=== PATIENT | male | born 1995 | race Caucasian/White ===

== ENCOUNTER 2018-12-11 08:18 | Emergency (ER) | payer OTHER | END 2018-12-11 11:11 | disposition left against medical advice (07) | LOC: JERFT 08:18 ==

== ENCOUNTER 2019-06-28 11:56 | Day surgery (SDC) | payer OTHER ==
[2019-06-28] MEDS ORDERED: SODIUM CHLORIDE 1,000 ML IV STA ×2 (12:33→14:54)
[2019-06-28] MEDS ORDERED: morphine CARPU-JECT 4 MG/1 ML DISP.SYRIN IVPUSH ONE ×2 (12:33→14:47)
[2019-06-28] MEDS ORDERED: MORPHINE SULFATE 2 MG/ML VIAL ONE (12:43)
[2019-06-28] MEDS ORDERED: ONDANSETRON 4 MG/2 ML VIAL IVPUSH ONE (12:45)
--- NOTE | 2019-06-28 12:46 | PDOC ---
History of Present Illness - General Chief Complaint: Pain Stated Complaint: SENT FROM URGENT CARE/ABD PAIN Time Seen by Provider: 06/28/19 12:24 History Source: Patient - History of Present Illness Timing/Duration: reports: getting worse Quality: reports: severe Abdominal Pain Onset Location: reports: RLQ Past History - Past Medical History Allergies/Adverse Reactions: Allergies Allergy/AdvReac Type Severity Reaction Status Date / Time No Known Allergies Allergy Verified 06/28/19 12:00 COPD: No - Immunization History Immunization Up to Date: Yes - Psycho Social/Smoking Cessation Hx Smoking History: Never smoked Review of Systems - Review of Systems Constitutional: No: Chills, Fever ABD/GI: Yes: Abdominal cramping. No: Blood Streaked Bowels, Constipated, Diarrhea, Nausea, Rectal Bleeding, Vomiting : No: Dysuria, Flank Pain, Hematuria *Physical Exam - Vital Signs Last Vital Signs Temp Pulse Resp BP Pulse Ox 98.4 F 85 18 108/73 99 06/28/19 11:57 06/28/19 11:57 06/28/19 11:57 06/28/19 11:57 06/28/19 11:57 - Physical Exam General Appearance: Yes: Appropriately Dressed, Severe Distress HEENT: positive: Normal Voice Neck: positive: Supple Respiratory/Chest: negative: Respiratory Distress Gastrointestinal/Abdominal: positive: Normal Bowel Sounds, Tender (to periumbilicus and RLQ), Soft. negative: Distended, Guarding, Rebound Musculoskeletal: negative: CVA Tenderness Integumentary: positive: Dry, Warm Neurologic: positive: Fully Oriented, Alert, Normal Mood/Affect ED Treatment Course - LABORATORY CBC & Chemistry Diagram: 06/28/19 12:45 06/28/19 12:45 - RADIOLOGY Radiology Studies Ordered: Category Date Time Status ABDOMEN & PELVIS CT WITH CONTR [CT] Stat CT Scan 06/28/19 12:35 Ordered Medical Decision Making - Medical Decision Making 06/28/19 12:43 24-year-old male, no significant history, here with severe abdominal pain that started this a.m. No nausea, vomiting, change in bowel movements, fever or chills. No history of similar episode. Seen at urgent care this a.m. and sent to ED to be ruled out for appendicitis see exam Concern for appy Pt very uncomfortable w/ sig ttp and guarding to RLQ -pain control -IVF -CT -anticipate admission 06/28/19 14:10 CT with acute appy with no obvious abscess or perforation. Patient stable at this time. Will consult with surgery 06/28/19 14:45 Case d/w Dr Lofton, wants pt given lashae-eoperative abx and admit to medicine Discharge - Discharge Information Problems reviewed: Yes Clinical Impression/Diagnosis: Appendicitis Qualifiers: Appendicitis type: acute appendicitis Acute appendicitis type: unspecified acute appendicitis type Qualified Code(s): K35.80 - Unspecified acute appendicitis Condition: Fair Disposition: HOME - Admission Yes - Follow up/Referral Referrals: ON STAFF,NOT [Primary Care Provider] - - Patient Discharge Instructions - Post Discharge Activity
[2019-06-28 13:15] LABS: BASO % 0.3 % (0-2.0); EOS % 1.3 % (0-4.5); HEMATOCRIT 42.8 % (35.4-49); HEMOGLOBIN 14.8 GM/dL (11.7-16.9); LYMPH % 10.9 % (8-40); MCH 33.2 pg (25.7-33.7); MCHC 34.7 g/dl (32.0-35.9); MEAN CELL VOLUME 95.6 fl (80-96); MEAN PLT VOLUME 8.2 fl (7.5-11.1); MONO % 10.6 % (3.8-10.2); NEUT % 76.9 % (42.8-82.8); PLATELET COUNT 246 K/MM3 (134-434); RBC 4.47 M/mm3 (4.00-5.60); RDW 12.9 % (11.9-15.9); WHITE BLOOD COUNT 11.8 K/mm3 (4.0-10.0)
[2019-06-28 13:37] LABS: ALBUMIN 4.2 g/dl (3.4-5.0); BILIRUBIN,TOTAL 0.9 mg/dL (0.2-1); CALCIUM 9.6 mg/dL (8.5-10.1); CREATININE 0.9 mg/dL (0.55-1.3); POTASSIUM 3.4 mmol/L (3.5-5.1); TOT PROT 7.8 g/dl (6.4-8.2)
[2019-06-28] MEDS ORDERED: ONDANSETRON 4 MG/2 ML VIAL ONE (13:39)
[2019-06-28 14:04] LABS: PROTHROMBIN TIME (PATIENT) 11.8 SEC (9.7-13.0)
[2019-06-28] MEDS ORDERED: morphine SULFATE 4 MG/ML VIAL ONE ×2 (14:16→17:00)
[2019-06-28] MEDS ORDERED: CEFTRIAXONE 1 GM in DEXTROSE 5%-WATER - 50 ML IVPB ONE (14:47)
[2019-06-28] MEDS ORDERED: CEFTRIAXONE 1 GM/50 ML BAG ONE (14:50)
--- NOTE | 2019-06-28 14:53 | HP ---
CHIEF COMPLAINT: Abdominal pain HISTORY OF PRESENT ILLNESS: This is a 24 year old man who comes to the ED today complaining of abdominal pain. He says that he awoke with severe pain in his mid -abdomen. The pain has been constant, non-radiating. He denies fever, chills, nausea, vomiting, diarrhea, melena, rectal bleeding. He went to urgent care and was sent to the ED. PAST MEDICAL HISTORY: None PAST SURGICAL HISTORY: None Recent Travel: None Social History: Smoking: No tobacco. (+) vaping Alcohol: Drinks heavily on weekends - beer, Veronica Drugs: Denies Allergies No Known Allergies Allergy (Verified 06/28/19 12:00) HOME MEDICATIONS: None REVIEW OF SYSTEMS CONSTITUTIONAL: Absent: fever, chills, diaphoresis, generalized weakness, malaise, loss of appetite, weight change HEENT: Absent: rhinorrhea, nasal congestion, throat pain, throat swelling, difficulty swallowing, mouth swelling, ear pain, eye pain, visual changes CARDIOVASCULAR: Absent: chest pain, syncope, palpitations, lightheadedness, peripheral edema RESPIRATORY: Absent: cough, shortness of breath, dyspnea with exertion, orthopnea, wheezing, stridor, hemoptysis GASTROINTESTINAL: Present: abdominal pain. Absent: abdominal distention, nausea , vomiting, diarrhea, constipation, melena, hematochezia GENITOURINARY: Absent: dysuria, frequency, urgency, hesitancy, hematuria, flank pain MUSCULOSKELETAL: Absent: myalgia, arthralgia, joint swelling, back pain, neck pain SKIN: Absent: rash, itching, pallor HEMATOLOGIC/IMMUNOLOGIC: Absent: easy bleeding, easy bruising, lymphadenopathy, frequent infections ENDOCRINE: Absent: unexplained weight gain, unexplained weight loss, heat intolerance, cold intolerance NEUROLOGIC: Absent: headache, focal weakness, paresthesias, dizziness, unsteady gait, seizure, mental status changes, bladder or bowel incontinence PSYCHIATRIC: Absent: anxiety, depression, suicidal or homicidal ideation, hallucinations. PHYSICAL EXAMINATION Vital Signs - 24 hr 06/28/19 11:57 Temperature 98.4 F Pulse Rate 85 Respiratory 18 Rate Blood Pressure 108/73 O2 Sat by Pulse 99 Oximetry (%) GENERAL: Awake, alert, and fully oriented, in no acute distress. HEAD: Normal with no signs of trauma. EYES: Pupils equal, round and reactive to light, extraocular movements intact, sclera anicteric, conjunctiva clear. EARS, NOSE, THROAT: Ears normal, nares patent, oropharynx clear without exudates. Moist mucous membranes. NECK: Normal range of motion, supple without lymphadenopathy, JVD, or masses. LUNGS: Breath sounds equal, clear to auscultation bilaterally. No wheezes, and no crackles. No accessory muscle use. HEART: Regular rate and rhythm, normal S1 and S2 without murmur, rub or gallop. ABDOMEN: Soft, (+) RLQ tenderness, not distended, normoactive bowel sounds, (+) guarding, (+) rebound, no masses, no hepatomegaly, no splenomegaly. MUSCULOSKELETAL: Normal range of motion at all joints. No bony deformities or tenderness. No CVA tenderness. UPPER EXTREMITIES: 2+ pulses, warm, well-perfused. No cyanosis. No clubbing. No peripheral edema. LOWER EXTREMITIES: 2+ pulses, warm, well-perfused. No calf tenderness. No peripheral edema. NEUROLOGICAL: Cranial nerves II-XII intact. Normal speech. PSYCHIATRIC: Cooperative. Good eye contact. Appropriate mood and affect. SKIN: Warm, dry, normal turgor, no rashes or lesions noted, normal capillary refill. Laboratory Results - last 24 hr 06/28/19 06/28/19 06/28/19 12:45 12:45 12:45 WBC 11.8 H RBC 4.47 Hgb 14.8 Hct 42.8 MCV 95.6 MCH 33.2 MCHC 34.7 RDW 12.9 Plt Count 246 MPV 8.2 Absolute Neuts (auto) 9.0 H Neutrophils % 76.9 Lymphocytes % 10.9 Monocytes % 10.6 H Eosinophils % 1.3 Basophils % 0.3 Nucleated RBC % 0 PT with INR 11.80 INR 1.00 Sodium 135 L Potassium 3.4 L Chloride 103 Carbon Dioxide 26 Anion Gap 6 L BUN 13.0 Creatinine 0.9 Est GFR (CKD-EPI)AfAm 137.10 Est GFR (CKD-EPI)NonAf 118.29 Random Glucose 80 Calcium 9.6 Total Bilirubin 0.9 AST 21 ALT 30 Alkaline Phosphatase 57 Total Protein 7.8 Albumin 4.2 Blood Type Antibody Screen 06/28/19 12:45 WBC RBC Hgb Hct MCV MCH MCHC RDW Plt Count MPV Absolute Neuts (auto) Neutrophils % Lymphocytes % Monocytes % Eosinophils % Basophils % Nucleated RBC % PT with INR INR Sodium Potassium Chloride Carbon Dioxide Anion Gap BUN Creatinine Est GFR (CKD-EPI)AfAm Est GFR (CKD-EPI)NonAf Random Glucose Calcium Total Bilirubin AST ALT Alkaline Phosphatase Total Protein Albumin Blood Type A NEGATIVE Antibody Screen Negative CT abdomen/pelvis: Acute appendicitis without abscess. ASSESSMENT/PLAN: This is a 24 year old man with no past medical history who presented to the ED today with abdominal pain. 1. Acute appendicitis - Ceftriaxone, Flagyl given - NPO - IV fluid - Morphine as needed for pain control - Surgery consult 2. Hypokalemia - Replete potassium 3. Alcohol use - Counselled patient on risks of alcohol use and abstinence 4. Vaping - Counselled patient on risks of vaping Visit type - Emergency Visit Emergency Visit: Yes ED Registration Date: 06/28/19 Care time: The patient presented to the Emergency Department on the above date and was hospitalized for further evaluation of their emergent condition. - New Patient This patient is new to me today: Yes Date on this admission: 06/28/19 - Critical Care Critical Care patient: No
[2019-06-28] MEDS ORDERED: ONDANSETRON 4 MG/2 ML VIAL IVPUSH PRN ×3 (15:49→21:06)
[2019-06-28] MEDS ORDERED: morphine CARPU-JECT 2 MG/1 ML DISP.SYRIN IVPUSH PRN (15:49)
[2019-06-28] MEDS ORDERED: LACTATED RINGERS SOLUTION 1,000 ML IV SCH ×2 (16:00→19:45)
--- NOTE | 2019-06-28 17:08 | CONSULT ---
- Consultation REQUESTING PROVIDER: Sinan Leesh CONSULT REQUEST: We have been asked to surgically evaluate this patient for appendicitis. PCP:Guero Mo MD HISTORY OF PRESENT ILLNESS: HENRI who is a 24 y/o male who presented to Urgent Care earlier today w/abdominal pain and was told to come to the hospital b/o suspected appendicitis. He states that he woke up with severe pain in his mid-abdomen. The pain has been constant, non-radiating and now localized to his RLQ. He denies fever, chills, nausea, vomiting, diarrhea, melena, rectal bleeding. Pain is sharp and worse w/movement and better while lying still; it is constant and unrelenting; he has no other Gi/ c/o's and has never experienced pain like this before. Pain is knifelike. PMHx: none PSHx: none Allergies Allergy/AdvReac Type Severity Reaction Status Date / Time No Known Allergies Allergy Verified 06/28/19 12:00 REVIEW OF SYSTEMS: CONSTITUTIONAL: Absent: fever, chills, diaphoresis, generalized weakness, malaise, loss of appetite, weight change CARDIOVASCULAR: Absent: chest pain, syncope, palpitations, irregular heart rate, lightheadedness , peripheral edema RESPIRATORY: Absent: cough, shortness of breath, dyspnea with exertion, wheezing, stridor, hemoptysis GASTROINTESTINAL: Present: abdominal pain, abdominal distension, nausea, vomiting, Absent: diarrhea, constipation, melena, hematochezia GENITOURINARY: Absent: dysuria, frequency, urgency, hesitancy, hematuria, flank pain, genital pain MUSCULOSKELETAL: Absent: myalgia, arthralgia, joint swelling, back pain, neck pain SKIN: Absent: rash, itching, pallor HEMATOLOGIC/IMMUNOLOGIC: Absent: easy bleeding, easy bruising, lymphadenopathy NEUROLOGIC: Absent: headache, focal weakness, paresthesias, dizziness, unsteady gait, seizure, mental status changes, bladder or bowel incontinence PSYCHIATRIC: Absent: anxiety, depression, suicidal or homicidal ideation, hallucinations. PHYSICAL EXAM: GENERAL: Awake, alert, and fully oriented, in no acute distress. HEAD: Normal with no signs of trauma. EYES: PERRL, sclera anicteric, conjunctiva clear. NECK: Normal ROM, supple without lymphadenopathy, JVD, or masses. ABDOMEN: Soft, tender RLQ, not distended, normoactive bowel sounds, guarding and rebound are present, no masses. No organomegaly. No hernias. Rovsings and pasoas and obturator signs are present. MUSCULOSKELETAL: Normal ROM at all joints. No bony deformities or tenderness. No CVA tenderness. UPPER EXTREMITIES: 2+ pulses, warm, well-perfused. No cyanosis. Cap refill <2 seconds. No peripheral edema. LOWER EXTREMITIES: 2+ pulses, warm, well-perfused. No calf tenderness. No peripheral edema. NEUROLOGICAL: Normal speech, gait not observed. PSYCH: Cooperative. Good eye contact. Appropriate mood and affect. SKIN: Warm, dry, normal turgor, no rashes or lesions noted. Vital Signs Temperature 98.4 F 06/28/19 11:57 Pulse Rate 85 06/28/19 11:57 Respiratory Rate 18 06/28/19 11:57 Blood Pressure 108/73 06/28/19 11:57 O2 Sat by Pulse Oximetry (%) 99 06/28/19 11:57 Lab Results WBC 11.8 K/mm3 (4.0-10.0) H 06/28/19 12:45 RBC 4.47 M/mm3 (4.00-5.60) 06/28/19 12:45 Hgb 14.8 GM/dL (11.7-16.9) 06/28/19 12:45 Hct 42.8 % (35.4-49) 06/28/19 12:45 MCV 95.6 fl (80-96) 06/28/19 12:45 MCHC 34.7 g/dl (32.0-35.9) 06/28/19 12:45 RDW 12.9 % (11.9-15.9) 06/28/19 12:45 Plt Count 246 K/MM3 (134-434) 06/28/19 12:45 Sodium 135 mmol/L (136-145) L 06/28/19 12:45 Potassium 3.4 mmol/L (3.5-5.1) L 06/28/19 12:45 Chloride 103 mmol/L (98-107) 06/28/19 12:45 Carbon Dioxide 26 mmol/L (21-32) 06/28/19 12:45 Anion Gap 6 MMOL/L (8-16) L 06/28/19 12:45 BUN 13.0 mg/dL (7-18) 06/28/19 12:45 Creatinine 0.9 mg/dL (0.55-1.3) 06/28/19 12:45 Random Glucose 80 mg/dL (74-106) 06/28/19 12:45 Calcium 9.6 mg/dL (8.5-10.1) 06/28/19 12:45 Blood Type A NEGATIVE 06/28/19 12:45 Antibody Screen Negative 06/28/19 12:45 INR 1.00 (0.83-1.09) 06/28/19 12:45 CT scan a/p reviewed images and report IMP: acute appendicitis PLAN: lap appendectomy possible open; r/b/t/a's d/w the patient and family and informed consent obtained. Kenny Lofton MD FACS
[2019-06-28] MEDS ORDERED: BENZOIN TINCTURE SWABSTICK TP ONE (17:41)
[2019-06-28] MEDS ORDERED: BUPIVACAINE HCL/PF 0.5% (5 MG/ML) 30 ML VIAL IJ ONE ×3 (17:41→20:31)
[2019-06-28] MEDS ORDERED: PROMETHAZINE HCL 25 MG/1 ML VIAL IVPUSH PRN ×2 (19:36→21:06)
[2019-06-28] MEDS ORDERED: ROCURONIUM BROMIDE 50 MG/5 ML SYRINGE ONE (19:40)
[2019-06-28] MEDS ORDERED: PROPOFOL 20 ML ONE (19:40)
[2019-06-28] MEDS ORDERED: MIDAZOLAM HCL 2 MG/2 ML SINGLE DOSE VIAL ONE (19:40)
[2019-06-28] MEDS ORDERED: DEXAMETHASONE SOD PHOSPHATE 4 MG/1 ML VIAL ONE (19:58)
[2019-06-28] MEDS ORDERED: KETOROLAC TROMETHAMINE 30 MG/1 ML VIAL ONE (20:03)
--- NOTE | 2019-06-28 20:39 | OP ---
Operative Note - Note: Operative Date: 06/28/19 Pre-Operative Diagnosis: acute appendicitis Operation: laparoscopic appendectomy Findings: acute suppurative appendicitis Post-Operative Diagnosis: Same as Pre-op Surgeon: Kenny Lofton Granite Countertop Installer: Angela Carroll Anesthesiologist/ASSISTANT PORTFOLIO MANAGER: Mark Jordan Anesthesia: General Specimens Removed: appendix Estimated Blood Loss (mls): 15
[2019-06-28] MEDS ORDERED: KETOROLAC TROMETHAMINE 30 MG/1 ML VIAL IVPUSH PRN (20:50)
[2019-06-28] MEDS: LACTATED RINGERS SOLUTION 1,000 ML IV SCH (22:26)
[2019-06-28] MEDS: MORPHINE SULFATE 2 MG/ML VIAL IVPUSH PRN (22:26)
[2019-06-28 22:58] VITALS: BMI 21.7
[2019-06-28] MEDS ORDERED: ACETAMINOPHEN 1000 MG/100 ML VIAL (NON FORMULARY) IVPB SCH (23:00)
[2019-06-29] MEDS: MORPHINE SULFATE 2 MG/ML VIAL IVPUSH PRN (02:28)
[2019-06-29] MEDS: oxyCODONE HCL 5 MG TABLET PO PRN ×2 (02:45→08:31)
[2019-06-29] MEDS ORDERED: KETOROLAC TROMETHAMINE 30 MG/1 ML VIAL IVPUSH PRN (05:00)
[2019-06-29] MEDS: ACETAMINOPHEN 325 MG TABLET (FP) PO SCH ×3 (05:23→17:59)
--- NOTE | 2019-06-29 07:55 | PN ---
Progress Note (short form) - Note Progress Note: POD 1, s/p lap appy. Pt seen and examined. Doing well this AM. No issues overnight. Has some pain, controlled with pain regimen. Has not had PO. Has not been oob yet. Voiding in urinal. No flatus yet. Denies cp/sob, n/v/d. Vital Signs Temp 98.0 F 06/29/19 05:45 Pulse 60 06/29/19 05:45 Resp 18 06/29/19 05:45 BP 101/50 L 06/29/19 05:45 Pulse Ox 99 06/29/19 04:51 Intake & Output 06/28/19 06/28/19 06/29/19 11:59 23:59 11:59 Intake Total 3050 975 Output Total 715 Balance 2335 975 Weight 160 lb 142 lb 14.4 oz Intake: IV 2900 875 Lactated Ringers Solution 875 1,000 ml @ 125 mls/hr IV ASDIR DEJA Rx#: [id number] Normal Saline - 1,000 ml 1000 @ 1000 mls/hr IV ASDIR STA Rx#:[id number] Normal Saline - 1,000 ml 1000 @ 1000 mls/hr IV ASDIR STA Rx#:[id number] IVPB 150 100 Output: Urine 700 Estimated Blood Loss 15 Other: Voiding Method Urinal Urinal # Unmeasured Voids Void 0 Bowel Movement No Height 5 ft 8 in 5 ft 8 in Body Mass Index (BMI) 24.3 21.7 Weight Measurement Method Built in [facility] CBC, BMP 06/29/19 08:08 06/29/19 08:08 Gen: awake, alert, nad Resp: unlabored on Ra Abdo: soft, nd, + ttp in pelvic region, + bowel sounds. Dressings c/d/i. A/P: 24 y/oMF w/ no significant PMHx, admitted 06/28 after presenting with abdominal pain, found to have acute appendicitis, now POD 1, s/p Lap appy. Afebrile, vss Leukocytosis resolving -Regular diet -OOB ad fani -Keep dressings c/d/i -Pain control -VS per protocol -May be discharged later today per medical team if tolerating regular diet d/w attending Dr Lofton
[2019-06-29] MEDS: LACTATED RINGERS SOLUTION 1,000 ML IV SCH (08:35)
--- NOTE | 2019-06-29 08:50 | PN ---
Progress Note (short form) - Note Progress Note: Anesthesia Post Op Note Pt awake alert s/p GA for lap appy Denies n/v, no puritis Pt ambulating well no urinary retention pain well controlled VSS no apparent anesthesia complications SHANDRA Ram M.D.
[2019-06-29 09:24] LABS: BASO % 0.2 % (0-2.0); HEMATOCRIT 41.1 % (35.4-49); HEMOGLOBIN 14.2 GM/dL (11.7-16.9); LYMPH % 6.7 % (8-40); MCH 33.4 pg (25.7-33.7); MCHC 34.4 g/dl (32.0-35.9); MEAN CELL VOLUME 97.1 fl (80-96); MEAN PLT VOLUME 8.9 fl (7.5-11.1); MONO % 3.4 % (3.8-10.2); NEUT % 89.7 % (42.8-82.8); PLATELET COUNT 232 K/MM3 (134-434); RBC 4.23 M/mm3 (4.00-5.60); RDW 12.8 % (11.9-15.9); WHITE BLOOD COUNT 11.1 K/mm3 (4.0-10.0)
[2019-06-29 09:47] LABS: BLOOD UREA NITROGEN 13.1 mg/dL (7-18); CALCIUM 8.8 mg/dL (8.5-10.1); CREATININE 0.9 mg/dL (0.55-1.3); POTASSIUM 3.8 mmol/L (3.5-5.1)
[2019-06-29 15:41] VITALS: BP 109/59; PULSE 74; TEMP 98.1
--- NOTE | 2019-06-29 17:44 | SURG ---
Surgery Clasp Machine Operator Note Clasp Machine Operator: Angela Carroll PA-C Date of Service: 06/28/19 Diagnosis: acute appendicitis Procedure: laparoscopic appendectomy I was present for the entirety of the operative procedure. For further detail, please refer to operative report. Visit type - Case Type Case Type: ED Admission - Emergency Emergency Visit: Yes ED Registration Date: 06/28/19 Care time: The patient presented to the Emergency Department on the above date and was hospitalized for further evaluation of their emergent condition. - New patient Date on this admission: 06/28/19 - Critical Care Critical Care patient: No
--- NOTE | 2019-06-29 18:01 | DS ---
Physical Exam: SUBJECTIVE: Patient seen and examined OBJECTIVE: Vital Signs Period Temp Pulse Resp BP Sys/Navarro Pulse Ox Last 24 Hr 98.0 F-98.8 F 60-94 16-20 94-163/50-78 96-99 PHYSICAL EXAM GENERAL: The patient is awake, alert, and fully oriented, in no acute distress. HEAD: Normal with no signs of trauma. EYES: PERRL, extraocular movements intact, sclera anicteric, conjunctiva clear. ENT: Ears normal, nares patent, oropharynx clear without exudates, moist mucous membranes. NECK: Trachea midline, full range of motion, supple. LUNGS: Breath sounds equal, clear to auscultation bilaterally, no wheezes, no crackles, no accessory muscle use. HEART: Regular rate and rhythm, S1, S2 without murmur, rub or gallop. ABDOMEN: Soft, nontender, nondistended, normoactive bowel sounds, no guarding, no rebound, no hepatosplenomegaly, no masses. EXTREMITIES: 2+ pulses, warm, well-perfused, no edema. NEUROLOGICAL: Cranial nerves II through XII grossly intact. Normal speech, gait not observed. PSYCH: Normal mood, normal affect. SKIN: Warm, dry, normal turgor, no rashes or lesions noted. LABS Laboratory Results - last 24 hr 06/28/19 06/29/19 06/29/19 18:10 08:08 08:08 WBC 11.1 H RBC 4.23 Hgb 14.2 Hct 41.1 MCV 97.1 H MCH 33.4 MCHC 34.4 RDW 12.8 Plt Count 232 MPV 8.9 Absolute Neuts (auto) 9.9 H Neutrophils % 89.7 H Lymphocytes % 6.7 L D Monocytes % 3.4 L Eosinophils % 0.0 D Basophils % 0.2 Nucleated RBC % 0 Sodium Potassium Chloride Carbon Dioxide Anion Gap BUN Creatinine Est GFR (CKD-EPI)AfAm Est GFR (CKD-EPI)NonAf Random Glucose Calcium Blood Type A NEGATIVE A NEGATIVE Antibody Screen Negative 06/29/19 08:08 WBC RBC Hgb Hct MCV MCH MCHC RDW Plt Count MPV Absolute Neuts (auto) Neutrophils % Lymphocytes % Monocytes % Eosinophils % Basophils % Nucleated RBC % Sodium 136 Potassium 3.8 Chloride 101 Carbon Dioxide 26 Anion Gap 8 BUN 13.1 Creatinine 0.9 Est GFR (CKD-EPI)AfAm 137.10 Est GFR (CKD-EPI)NonAf 118.29 Random Glucose 94 Calcium 8.8 Blood Type Antibody Screen HOSPITAL COURSE: Date of Admission:06/28/19 Date of Discharge: 06/29/19 Minutes to complete discharge: 30 Discharge Summary Problems reviewed: Yes Reason For Visit: APPENDICITIS Current Active Problems Appendicitis (Acute) Hypokalemia (Acute) Alcohol use (Chronic) Vapes non-nicotine containing substance (Chronic) Hospital Course: This is a 24 year old man who presented to the ED on June 28 after waking with severe mid-abdominal pain that was constant and non-radiating. He first went to urgent care and was sent to the ED. He denied having fever, chills, nausea, vomiting, diarrhea, melena, rectal bleeding. In the ED, he was afebrile , WBC was 11.8, sodium was 135, and potassium was 3.4. CT showed acute appendicitis. He was treated with ceftriaxone and Flagyl. He was given potassium supplementation. He was seen by Dr. Lofton and underwent laparoscopic appendectomy. He did well postoperatively and is being discharged home on June 29. Condition: Improved - Instructions Diet, Activity, Other Instructions: Dr. Lofton Discharge Instructions Dear LESLIE MIRANDA, Post Operative Instructions Physical activity Resume your normal everyday activity as tolerated no heavy lifting or exercise until seen by your surgeon. You may walk unlimited amounts of and climb stairs. You may resume driving the car when you feel safe and comfortable behind the wheel. Wound care If you have a bandage, leave it on, and keep dry for 48 - 72 hours. After that time discard the outer bandage. If there are tapes on the skin under the outer bandage, leave them in place. They will peel off in the next 7 to 10 days. Do Not peel them off. You may shower 2 days after surgery. If there are tapes present on the skin, they can get wet. Diet There are no dietary restrictions. Eat healthy, high-fiber foods. Drink 6 to 8 glasses of liquid each day. This will assist in keeping your bowels are regular. Pain management You may take Tylenol or acetaminophen or Ibuprofen (for example, Motrin, Advil etc.) Any pain prescription medication ordered should be taken as prescribed for moderate to severe pain. Call Dr. Lofton for any of the following: Severe pain not relieved by medication Fever of 101 or higher Excessive bleeding or drainage on dressing Inability to urinate Call the office at [phone] for a post operative appointment in 7 - 10 days. Referrals: Kenny Lofton MD [Staff Physician] - 1 Week ON STAFF,NOT [Primary Care Provider] - 1 Week Disposition: HOME - Home Medications Comprehensive Discharge Medication List: Ambulatory Orders Acetaminophen [Tylenol .Regular Strength -] 650 mg PO Q6H tablet 06/29/19 oxyCODONE HCL [Roxicodone -] 5 mg PO Q6H PRN #10 tablet MDD 4 tabs 06/29/19 This patient is new to me today: No Emergency Visit: Yes ED Registration Date: 06/28/19 Care time: The patient presented to the Emergency Department on the above date and was hospitalized for further evaluation of their emergent condition. Critical Care patient: No - Discharge Referral Referred to [facility] Med P.C.: No
--- NOTE | 2019-06-30 10:30 | OP ---
DATE OF OPERATION: 06/28/2019 PREOPERATIVE DIAGNOSIS: Acute appendicitis. POSTOPERATIVE DIAGNOSIS: Acute appendicitis. PROCEDURE: Laparoscopic appendectomy. SURGEON: Kenny Lofton MD BUTTERMAKER HELPER: Angela Carroll PA-C ANESTHESIA: General. OPERATIVE FINDINGS: Acute suppurative appendicitis. The rest of the findings were unremarkable. PROCEDURE: Patient was placed on the operating room table in the supine position and after the induction of general anesthesia and placement of the Buchanan catheter and sequential compression devices on the patient's lower extremities; the abdomen was prepped with ChloraPrep and draped in sterile fashion. Pneumoperitoneum was established above the umbilicus using a Veress needle to an intraabdominal pressure of 15 mmHg. A 12 mm suprapubic port and a left lower quadrant 5 mm port were placed and laparoscopy carried out and the previously noted findings were observed. The appendix was grasped and identified at the base by the confluence of the 3 taeniae at the cecum. The mesoappendix was serially divided using the LigaSure device. Once cleared at the base, a purple load Endo CHAN was fired across the base of the appendix. The appendix was then next placed in an Endo Catch and brought out through the suprapubic port. Pneumoperitoneum was re-established without evidence of bleeding from the staple line, which was noted to be intact with 3 rows of rae. Again hemostasis was checked for and noted to be good and then all port sites were removed under laparoscopic vision without evidence of bleeding from the port sites. The pneumoperitoneum was evacuated and all port sites were infiltrated with 0.5% Marcaine. The defect at the suprapubic port was closed with a 0 Vicryl figure- of-8 suture. The port site skin incisions were closed with 4-0 Monocryl in the subcuticular fashion and the wounds dressed with Steri-Strips and Band-Aid dressings. The Buchanan catheter was removed and the patient aroused from general anesthesia and transferred to the post anesthesia care unit in stable condition awake and alert. ESTIMATED BLOOD LOSS: 15 mL REPLACEMENT: Crystalloid. DRAINS: None. SPECIMEN: Appendix to Pathology. I, Kenny Lofton, was physically present in the operating room from the time the patient was placed on the operating room table until he was transferred to the post anesthesia care unit in [employer]. MD DIMA Bernabe/[id number] MTDD
--- NOTE | 2019-07-01 17:56 | PATH ---
Surgical Pathology Report Patient Name: LESLIE MIRANDA [facility]. Rec. #: [id number] /Age/Gender: 1995 (Age: 24) / M Account: [id number] Location: [address] [place] [address] Taken: 06/28/2019 Received: 06/29/2019 Reported: 07/01/2019 Physicians: Kenny Lofton MD Specimen(s) Received APPENDIX Clinical History Acute appendicitis Final Diagnosis APPENDIX, LAPAROSCOPIC APPENDECTOMY: ACUTE APPENDICITIS AND PERIAPPENDICITIS. Electronically Signed Kirti Spain M.D. Gross Description Received in formalin, labeled "appendix," is an 8 cm. in length vermiform appendix with a stapled margin of resection and minimal attached fat. The serosa is simental-bowser with abundant attached exudate. Sectioning reveals a focally hemorrhagic lumen. The wall of the appendix averages 0.1 cm. in thickness. Vacuum Tester Cans sections are submitted in one cassette. /06/30/2019 saudi/06/30/2019
== END 2019-06-29 19:50 | disposition home or self-care (01) | DRG 225 ==
LOC: JER 11:56 → JERBED 14:12 → UNDOADMIN 14:12 → JASUSAT 15:49 → J6S 22:13 → JERBED 22:13 → UNDODISIN 06-29 19:50 → JASUSAT 06-29 19:50
PROVIDERS: ATTEND Internal Medicine
PROC: 0DTJ4ZZ Resection of Appendix, Percutaneous Endoscopic Approach (ICD-10-PCS; principal; 2019-06-28 19:00)
DX: K35.80 Unspecified acute appendicitis (principal); E87.6 Hypokalemia; D72.829 Elevated white blood cell count, unspecified; R10.31 Right lower quadrant pain
CPT/HCPCS: 36415; 74177-TC; 80048; 80053; 85025; 85610; 86850; 86900; 86901; 94760; 99284-25; J0131; J7030